=== PATIENT | male | born 1990 | race Caucasian/White ===

== ENCOUNTER → 2021-08-10 | Day surgery (SDC) | payer MEDICARE, OTHER ==
[~2021-08-10] VITALS: Ht 182.9 cm; Wt 127.7 kg
[~2021-08-10] MED LIST: BUSP15TA PO; CHOL5000 PO; CITA40TA12 PO; HYDR200T71 PO; IV RINGERS,LACTATED 1000ML 1,000 ML IV SCH; LAMO200T6 PO; LIDOCAINE 2% PF 5 ML VIAL. ONE; LORA0.5T96 PO; PROPOFOL 10 MG/ML (20ML) VIAL. IV ONE; RAME8TAB19 PO
[2021-08-10 12:28] VITALS: BP 132/66
--- NOTE | 2021-08-10 13:21 | PDOC4 ---
PROCEDURE Procedure Colonoscopy Indication: blood in stool. Meds: per anesthesia. Findings: NEVILLE: normal --'Scope advanced to cecum. Prep adequate. Redundant and looping; re- positioned and manual pressure. Mucosa normal. No diverticula, polyps, AVM's, etc. Internal hemorrhoids on retroflex. Manny. well. IMP: Internal hemorrhoids, likely source of rectal bleeding. REC: Reassure. No treatment needed. Continue Miralax at whatever effective dose for constipation. Repeat colonoscopy age 45-50. F/u with me prn. STAR MOSQUEDA MD Aug 10, 2021 13:21
[2021-08-10 13:35] VITALS: BP 131/74
== END | disposition home or self-care (01) ==
LOC: ENDOS 12:05
PROVIDERS: ATTEND Internal Medicine Gastroenterology
DX: K62.5 Hemorrhage of anus and rectum (principal); K64.0 First degree hemorrhoids; K63.89 Other specified diseases of intestine; J45.909 Unspecified asthma, uncomplicated; F41.9 Anxiety disorder, unspecified; F32.9 Major depressive disorder, single episode, unspecified; Z79.899 Other long term (current) drug therapy; Z98.890 Other specified postprocedural states
CPT/HCPCS: 45378; J2704